=== PATIENT | male | born 1950 | race Caucasian/White ===

== ENCOUNTER 2022-10-31 11:03 | Outpatient (CLI) | payer MEDICARE | END 2022-10-31 11:04 | disposition home or self-care (01) | LOC: LABBT 11:03 | PROVIDERS: ATTEND Orthopaedic Surgery | DX: Z01.818 Encounter for other preprocedural examination (principal); M17.11 Unilateral primary osteoarthritis, right knee | CPT/HCPCS: 71046; 80048; 81003; 85025; 85610; 86850; 86900; 86901; 87081; 93005; 93010 ==

== ENCOUNTER 2022-11-05 06:41 | Observation (INO) | payer MEDICARE ==
[2022-10-31 12:26] LABS: Bilirubin Neg (Negative); Blood, Urine Negative (Negative); Clarity Clear (Clear); Glucose, Urine (Dipstick) Normal (Negative); Ketone, Urine Negative (Negative); Leukocyte Negative (Negative); Nitrite Negative (Negative); Protein, Urine (Dipstick) Negative (Neg-Trace); Urobilinogen Normal mg/dL (Less than 2)
[2022-10-31 13:54] LABS: #Basophils 0.1 10x3/uL (0.0-0.2); #Eosinphils 0.2 10x3/uL (0.0-0.5); #Monocytes 0.6 10x3/uL (0.0-1.1); #Neutrophils 4.3 10x3/uL (1.5-8.4); %Basophils 0.8 % (0.0-2.0); %Eosinophils 2.3 % (0.0-6.0); %Lymphocytes 21.3 % (18.0-47.0); %Monocytes 8.6 % (0.0-10.0); %Neutrophils 66.7 % (40.0-75.0); Hemoglobin 15.2 g/dL (13.5-17.5); Mean Corpuscular HGB CONC 33.9 g/dL (32.0-36.0); Mean Corpuscular Hemoglobin 32.5 pg (27.0-33.0); Mean Corpuscular Volume 95.9 fl (81.2-95.1); Mean Platelet Volume 9.9 fl (7.4-10.4); Platelet Count 244 10x3/uL (150-450); RBC Distribution Width 13.5 % (11.5-14.5); Red Blood Cell (RBC) Count 4.67 10x6/uL (4.32-5.72); White Blood Cell (WBC) Count 6.4 10x3/uL (3.5-10.5)
[2022-10-31 13:55] LABS: Prothrombin Time 10.4 sec (9.5-12.1)
[2022-10-31 14:01] LABS: Anion Gap 18 mmol/L (10-20); BUN (Urea Nitrogen) 14 mg/dL (8.4-25.7); Calc. Creatinine Clearance 0 mL/min (70-130); Calcium 9.9 mg/dL (7.8-10.44); Carbon Dioxide 26 mmol/L (23-31); Chloride 100 mmol/L (98-107); Estimated GFR 90; Glucose 95 mg/dL (83-110); Potassium 4.1 mmol/L (3.5-5.1); Sodium 140 mmol/L (136-145)
[2022-11-01 13:37] VITALS: BMI 26.9
[2022-11-05] MEDS ORDERED: Vancomycin (BATCH) 1.5 GRAM/300 ML BAG ONE (07:09)
[2022-11-05] MEDS ORDERED: Tranexamic Acid 1,000 MG/10 ML VIAL ONE ×2 (07:09→10:08)
[2022-11-05] MEDS ORDERED: Sodium Chloride 0.9% 100 ML ONE ×2 (07:09→08:13)
[2022-11-05] MEDS ORDERED: fentaNYL 50 mcg/mL 1 mL Vial ONE ×3 (07:19→10:27)
[2022-11-05] MEDS ORDERED: Midazolam HCl 2 mg/2 ml Vial ONE (07:35)
[2022-11-05] MEDS ORDERED: Bupivacaine PF 0.5% 30 ML VIAL ONE (07:36)
[2022-11-05] MEDS ORDERED: Bupivacaine 0.25% HCL 30 ML VIAL ONE (07:36)
[2022-11-05] MEDS ORDERED: Acetaminophen 325 MG TAB PO PRN (08:04)
[2022-11-05] MEDS ORDERED: HYDROcodone/Acetaminophen 10/325 mg Tablet PO PRN ×3 (08:04→09:00)
[2022-11-05] MEDS ORDERED: Ondansetron PF 4 MG/2 ML Vial IVP PRN ×2 (08:04→09:00)
[2022-11-05] MEDS ORDERED: Zolpidem Tartrate 5 MG TAB PO PRN ×2 (08:04→09:00)
[2022-11-05] MEDS ORDERED: diphenhydrAMINE 25 MG CAP PO PRN (08:04)
[2022-11-05] MEDS ORDERED: Promethazine HCl 25 MG/ML VIAL IM PRN ×3 (08:04→09:44)
[2022-11-05] MEDS ORDERED: FENTANYL 50 MCG/ML 1 ML VIAL SLOW IVP PRN (08:04)
[2022-11-05] MEDS ORDERED: traMADol HCl 50 MG TAB PO PRN ×3 (08:04→09:00)
[2022-11-05] MEDS ORDERED: Triamcinolone 0.1% Cream 15 GM TUBE TOP PRN (08:07)
[2022-11-05] MEDS ORDERED: PROPOFOL 200 MG/20 ML VIAL ONE (08:10)
[2022-11-05] MEDS ORDERED: Bupivacaine HCl 0.5%/Epinephrine 1:200,000/PF 30 ml Vial ONE (08:10)
[2022-11-05] MEDS ORDERED: Dexamethasone 20 MG/5 ML VIAL ONE (08:10)
[2022-11-05] MEDS ORDERED: Ondansetron PF 4 MG/2 ML Vial ONE (08:10)
[2022-11-05] MEDS ORDERED: CEFAZOLIN 2 GM VIAL ONE (08:13)
[2022-11-05] MEDS ORDERED: Tranexamic Acid 1,000 MG in Sodium Chloride 0.9% 100 ML IVPB SCH (08:15)
[2022-11-05] MEDS ORDERED: fentaNYL 50 mcg/mL 1 mL Vial SLOW IVP PRN (08:57)
[2022-11-05] MEDS ORDERED: Ropivacaine 0.2% 550 ML 550 ML NERVE BLCK SCH (09:00)
[2022-11-05] MEDS ORDERED: fentaNYL PF 100 MCG/2 ML SYRINGE ONE (09:09)
[2022-11-05] MEDS ORDERED: Ondansetron HCl/PF 4 MG/2 ML Vial IVP PRN (09:44)
[2022-11-05] MEDS ORDERED: Meperidine HCl/PF 25 MG/ML VIAL ONE (10:47)
[2022-11-05] MEDS ORDERED: Ketorolac Tromethamine 30 MG/ML VIAL IVP SCH (14:00)
[2022-11-05] MEDS ORDERED: Ketorolac Tromethamine 30 MG/ML VIAL ONE (14:09)
[2022-11-05] MEDS: Ketorolac Tromethamine 30 MG/ML VIAL IVP SCH ×2 (14:12→17:53)
[2022-11-05] MEDS: Allopurinol 300 MG TAB PO SCH (14:57)
[2022-11-05] MEDS: Sodium Chloride 0.9% 1,000 ML IV SCH ×2 (14:57→19:08)
[2022-11-05] MEDS: Aspirin 81 mg Enteric Coated Tablet PO SCH ×2 (14:57→20:11)
[2022-11-05] MEDS: Chlorthalidone 25 MG TAB PO SCH (14:57)
[2022-11-05] MEDS: Fluticasone Propionate Nasal Spray 16 gm Bottle NASAL SCH (14:58)
[2022-11-05] MEDS: Finasteride 5 MG TAB PO SCH (14:58)
[2022-11-05] MEDS: Tamsulosin HCl 0.4 MG CAP PO SCH (14:58)
[2022-11-05] MEDS: CEFAZOLIN 2 GM in Sodium Chloride 0.9% 100 ML IVPB SCH (17:51)
[2022-11-05] MEDS ORDERED: Vancomycin 1.5 GRAM/300 ML BAG 1.5 GM in Premix Bag 1 BAG IVPB SCH (20:00)
[2022-11-05] MEDS: Montelukast Sodium 10 mg Tablet PO SCH (20:11)
[2022-11-06] MEDS: Ketorolac Tromethamine 30 MG/ML VIAL IVP SCH ×5 (00:09→23:20)
[2022-11-06] MEDS: CEFAZOLIN 2 GM in Sodium Chloride 0.9% 100 ML IVPB SCH (00:09)
[2022-11-06] MEDS: Sodium Chloride 0.9% 1,000 ML IV SCH ×2 (03:57→14:55)
[2022-11-06 06:29] LABS: Hemoglobin 12.8 g/dL (14.0-18.0); Mean Corpuscular HGB CONC 33.7 g/dL (32.0-36.0); Mean Corpuscular Hemoglobin 34.6 pg (27.0-31.0); Mean Platelet Volume 7.3 fL (7.4-10.4); Platelet Count 194 10x3/uL (130-400); RBC Distribution Width 12.5 % (11.5-14.5); Red Blood Cell (RBC) Count 3.69 mill/uL (4.70-6.10); White Blood Cell (WBC) Count 10.7 10x3/uL (4.8-10.8)
[2022-11-06] MEDS: Ferrous Gluconate 324 MG TAB PO SCH ×2 (08:46→18:28)
[2022-11-06] MEDS: Multivitamin W/ Minerals 1 TAB PO SCH (08:46)
[2022-11-06] MEDS: Allopurinol 300 MG TAB PO SCH (08:47)
[2022-11-06] MEDS: Finasteride 5 MG TAB PO SCH (08:47)
[2022-11-06] MEDS: Tamsulosin HCl 0.4 MG CAP PO SCH (08:47)
[2022-11-06] MEDS: Senokot S 8.6-50 MG TAB PO SCH ×2 (08:47→20:53)
[2022-11-06] MEDS: Aspirin 81 mg Enteric Coated Tablet PO SCH ×2 (08:47→20:54)
[2022-11-06] MEDS: Fluticasone Propionate Nasal Spray 16 gm Bottle NASAL SCH (12:22)
[2022-11-06] MEDS: Chlorthalidone 25 MG TAB PO SCH (14:50)
[2022-11-06] MEDS: HYDROcodone/Acetaminophen 10/325 mg Tablet PO PRN (20:54)
[2022-11-06] MEDS: Montelukast Sodium 10 mg Tablet PO SCH (20:54)
[2022-11-07] MEDS: Sodium Chloride 0.9% 1,000 ML IV SCH ×2 (03:43→10:07)
[2022-11-07] MEDS: Ketorolac Tromethamine 30 MG/ML VIAL IVP SCH (06:01)
[2022-11-07 06:03] LABS: Hemoglobin 12.8 g/dL (14.0-18.0); Mean Corpuscular HGB CONC 34.1 g/dL (32.0-36.0); Mean Corpuscular Hemoglobin 34.9 pg (27.0-31.0); Mean Platelet Volume 7.5 fL (7.4-10.4); Platelet Count 185 10x3/uL (130-400); RBC Distribution Width 12.5 % (11.5-14.5); Red Blood Cell (RBC) Count 3.66 mill/uL (4.70-6.10); White Blood Cell (WBC) Count 8.1 10x3/uL (4.8-10.8)
[2022-11-07] MEDS: Chlorthalidone 25 MG TAB PO SCH (09:13)
[2022-11-07] MEDS: Multivitamin W/ Minerals 1 TAB PO SCH (09:14)
[2022-11-07] MEDS: Finasteride 5 MG TAB PO SCH (09:14)
[2022-11-07] MEDS: Tamsulosin HCl 0.4 MG CAP PO SCH (09:14)
[2022-11-07] MEDS: Allopurinol 300 MG TAB PO SCH (09:14)
[2022-11-07] MEDS: Senokot S 8.6-50 MG TAB PO SCH (09:14)
[2022-11-07] MEDS: Fluticasone Propionate Nasal Spray 16 gm Bottle NASAL SCH (09:14)
[2022-11-07] MEDS: Ferrous Gluconate 324 MG TAB PO SCH (09:14)
[2022-11-07] MEDS: Aspirin 81 mg Enteric Coated Tablet PO SCH (09:14)
[2022-11-07] MEDS: HYDROcodone/Acetaminophen 10/325 mg Tablet PO PRN (09:16)
[2022-11-07 12:38] VITALS: BP 134/77; TEMP 98.2
== END 2022-11-07 14:35 | disposition home or self-care (01) ==
LOC: SDC 06:41 → SURG B 14:37
PROVIDERS: ADMIT Orthopaedic Surgery; ATTEND Orthopaedic Surgery
PROC: 0SRC0J9 Replacement of Right Knee Joint with Synthetic Substitute, Cemented, Open Approach (ICD-10-PCS; principal; 2022-11-05)
DX: M17.11 Unilateral primary osteoarthritis, right knee (principal); I10 Essential (primary) hypertension; Z79.899 Other long term (current) drug therapy
CPT/HCPCS: 27447; 80048; 81003; 85025; 85027 ×2; 85610; 86850; 86900; 86901; 87081; 96365; 96366; 96367; 96375; 96376 ×3; 97110 ×3; 97116 ×3; 97530; A4306; C1713; C1776; G0378 ×3; J3010; J3370; 36415; J1100; J1885; J2175; J2250; J2405; J2704; J2795; J3490; S0020